=== PATIENT | male | born 1975 | race Caucasian/White ===

== ENCOUNTER 2020-08-25 00:28 | Emergency (ER) | payer MEDICARE ==
[~2020-08-25] VITALS: Ht 175.3 cm; Wt 70.9 kg
[2020-08-25 01:04] VITALS: TEMP 97.9
[2020-08-25 01:36] LABS: BASO # 0.1 (0.0-0.2); BASO % 0.8 % (0.0-2.0); EOS % 0.4 % (0-4.0); GRAN # 2.7 (1.4-6.5); GRAN % 36.9 % (42.2-75.2); HEMOGLOBIN 12.5 g/dl (13.5-18.0); LYMPH # 3.7 (1.2-3.4); LYMPH % 51.3 % (20.0-51.0); MEAN CELL VOLUME 94 fl (80.0-100.0); MEAN CORPUSCULAR HEMOGLOBIN 33 pg (27.0-31.0); MEAN CORPUSCULAR HGB CONC 35 g/dl (33.0-37.0); MEAN PLATELET VOLUME 10.2 fl (7.4-10.4); MONO # 0.8 (0.1-0.6); MONO % 10.5 % (1.7-9.3); PLATELET COUNT 200 K/mm3 (130-400); REDCELL DISTRIBUTION WIDTH-CV 12.8 % (11.5-14.5)
[2020-08-25 01:38] LABS: HEMATOCRIT 35.6 % (42.0-52.0)
[2020-08-25 01:53] LABS: ACETAMINOPHEN < 10 ug/mL (10-30); ALANINE AMINOTRANSFERASE 70 U/L (4-49); ALKALINE PHOSPHATASE 79 U/L (50-136); ANION GAP 9 mmol/L (7-16); AST,SGOT 67 U/L (15-37); BILIRUBIN,TOTAL 0.3 mg/dL (0.0-1.0); BLOOD UREA NITROGEN 15 mg/dL (9-20); CALCIUM 8.4 mg/dL (8.4-10.2); CARBON DIOXIDE 24 mmol/L (22-30); CHLORIDE 109 mmol/L (98-107); CREATININE, serum 1.08 (0.66-1.25); GLUCOSE 108 mg/dL (74-106); POTASSIUM 3.8 mmol/L (3.4-5.0); SALICYLATE < 1.0 mg/dL; SODIUM 142 mmol/L (137-145); TOTAL PROTEIN 6.8 gm/dL (6.4-8.2)
[2020-08-25 01:55] LABS: COLLECTION METHOD CLEAN CATCH
[2020-08-25 02:00] LABS: PH 5 (5-8); SQUAMOUS EPITHELIAL None Seen /hpf; URINE APPEARANCE Clear; URINE BACTERIA None Seen /hpf; URINE BILIRUBIN Negative (NEGATIVE); URINE BLOOD Negative (NEGATIVE); URINE COLOR Straw; URINE GLUCOSE Negative (NEGATIVE); URINE KETONE Negative (NEGATIVE); URINE LEUKOCYTE ESTERASE Negative (NEGATIVE); URINE NITRATE Negative (NEGATIVE); URINE PROTEIN(semi-quant) Negative (NEGATIVE); URINE RBC None Seen /hpf; URINE UROBILINOGEN Negative (NEGATIVE)
[2020-08-25 02:08] LABS: TRICYCLIC ANTIDEPRESS URINE NEGATIVE
[2020-08-25 07:51] LABS: ALCOHOL(ethanol),MEDICAL 321 mg/dL
[2020-08-25 14:19] VITALS: BP 144/96; PULSE 74
== END 2020-08-25 14:20 | disposition home or self-care (01) ==
LOC: COL.ER 00:28
PROVIDERS: Emergency Medicine
DX: S51.812A Laceration without foreign body of left forearm, initial encounter (principal); F10.129 Alcohol abuse with intoxication, unspecified; R45.850 Homicidal ideations; R45.851 Suicidal ideations; X78.9XXA Intentional self-harm by unspecified sharp object, initial encounter; Y90.7 Blood alcohol level of 200-239 mg/100 ml

== ENCOUNTER 2021-09-13 05:28 | Inpatient (IN) | payer MEDICARE ==
[~2021-09-13] VITALS: Ht 175.3 cm; Wt 72.7 kg
[~2021-09-13 05:28] MED LIST: BACTRIM DS 8001 TAB PO; CELEXA40 MG PO; CEPHALEXIN500 M1 PO; DESYREL 100MG100 MG PO; WELLBUTRIN XL300 M1 PO
[2021-09-13 05:58] LABS: BASO % 0.5 % (0.0-2.0); EOS % 0.3 % (0.0-4.0); GRAN # 2.4 K/mm3 (1.4-6.5); GRAN % 40.7 % (42.2-75.2); HEMATOCRIT 43.6 % (42.0-52.0); HEMOGLOBIN 15.5 g/dl (13.5-18.0); LYMPH # 2.4 K/mm3 (1.2-3.4); LYMPH % 40.7 % (20.0-51.0); MEAN CELL VOLUME 92 fl (80.0-100.0); MEAN CORPUSCULAR HEMOGLOBIN 33 pg (27-31); MEAN CORPUSCULAR HGB CONC 36 g/dl (33.0-37.0); MEAN PLATELET VOLUME 11.3 fl (7.4-10.4); MONO % 17.6 % (1.7-9.3); PLATELET COUNT 188 K/mm3 (130-400); RED BLOOD COUNT 4.74 M/mm3 (4.20-5.60); REDCELL DISTRIBUTION WIDTH-CV 12.2 % (11.5-14.5)
[2021-09-13 06:17] LABS: ALBUMIN 3.8 gm/dL (3.5-5.0); BILIRUBIN,TOTAL 0.6 mg/dL (0.2-1.2); CALCIUM 9.6 mg/dL (8.4-10.2); CREATININE, serum 0.93 mg/dL (0.72-1.25); POTASSIUM 3.8 mmol/L (3.5-4.5); TOTAL PROTEIN 7.6 gm/dL (6.2-8.1)
[2021-09-13 09:35] VITALS: BP 122/84; PULSE 75; TEMP 98.1
[2021-09-13 11:28] VITALS: BP 130/80; PULSE 92; TEMP 98
[2021-09-13] MEDS ORDERED: PRINIVIL20 MG PO (12:33)
[2021-09-13] MEDS ORDERED: LAMICTAL150 MG PO (12:34)
--- NOTE | 2021-09-13 15:00 | NUR ---
Admission assessment completed, alert/oriented, vital signs stable, repotrs moderate pain to left hand/ placing orders for medications and aware of need for pain meds, heart RRR, lungs CTA, denies other needs, independent in his room, will continue to monitor
[2021-09-13 16:34] VITALS: BP 123/82; PULSE 85; TEMP 98.6
[2021-09-13 19:54] VITALS: BP 114/81; PULSE 91; TEMP 97.5
--- NOTE | 2021-09-13 20:30 | NUR ---
Initial shift assessment done- denies need for pain meds at this time, left hand red /swollen- moving fingers good- pt states it feels better already. VSS. IV fluids of NS at 75cc/hr.
[2021-09-13 23:52] VITALS: BP 119/79; PULSE 65; TEMP 97.9
[2021-09-14 04:20] VITALS: BP 140/78; PULSE 56; TEMP 97.8
--- NOTE | 2021-09-14 04:57 | NUR ---
States pain to left hand 03/13- will give pain meds as ordered, VSS, no other requests.
[2021-09-14 06:49] LABS: HEMATOCRIT 38.6 % (42.0-52.0); MEAN CELL VOLUME 93 fl (80.0-100.0); MEAN CORPUSCULAR HEMOGLOBIN 32 pg (27-31); MEAN CORPUSCULAR HGB CONC 34 g/dl (33.0-37.0); MEAN PLATELET VOLUME 11.6 fl (7.4-10.4); PLATELET COUNT 170 K/mm3 (130-400); RED BLOOD COUNT 4.17 M/mm3 (4.20-5.60); REDCELL DISTRIBUTION WIDTH-CV 12.3 % (11.5-14.5)
[2021-09-14 06:53] LABS: HEMOGLOBIN 13.2 g/dl (13.5-18.0)
[2021-09-14 07:44] VITALS: BP 135/92; PULSE 63; TEMP 98
[2021-09-14 07:48] LABS: C-REACTIVE PROTEIN 3.51 mg/dL (0.00-0.50); CALCIUM 8.3 mg/dL (8.4-10.2); CREATININE, serum 0.8 mg/dL (0.72-1.25); MAGNESIUM 1.9 mg/dL (1.6-2.6); POTASSIUM 3.9 mmol/L (3.5-4.5)
[2021-09-14 08:03] LABS: BAND 2 % (0-10); LYMPHOCYTE 58 % (20.0-51.0); NEUTROPHILS 27 % (42.0-75.2)
[2021-09-14 08:04] LABS: PLATELET ESTIMATE NORMAL (NORMAL)
[2021-09-14 11:02] VITALS: BP 113/61; PULSE 77; TEMP 97.2
--- NOTE | 2021-09-14 14:22 | NUR ---
cab worker met with patient to discuss discharge plan. Patient reports that he lives at home alone here in [place]. Patient is independent with her activitied of daily living and that he does not utilize and DME to assist with mobility. Patient has no oxygen needs at home. PCP is JOHANA Sandoval and he utilizes [facility] for medications with no cost difficulty. Patient reports that he does not have a DPOA-HC established but that his parents Antoni and Jessica Gagnon ([phone]) are established as "something". Patient have never been and has no children. He i splanning on returning home post discharge. Discharge plan: Home
--- NOTE | 2021-09-14 15:52 | NUR ---
First visit from the jitterbug operator. No needs right now.
[2021-09-14 16:07] VITALS: BP 112/73; PULSE 63; TEMP 98
[2021-09-14 19:39] VITALS: BP 117/78; PULSE 68; TEMP 98
--- NOTE | 2021-09-14 20:51 | NUR ---
Patient given PRN Roxicodone and Motrin and requeste for pain to left hand. Continues on IV ABX per orders. Left hand/wrist continue to have some redness/warmth, minimal swelling. Patient reports area is looking and feeling better today. Voices no further questions, needs, or concerns at this time. In bed with call light within reach.
[2021-09-14 23:24] VITALS: BP 142/80; PULSE 68; TEMP 97.6
[2021-09-15 04:37] VITALS: BP 105/71; PULSE 55; TEMP 97.8
--- NOTE | 2021-09-15 05:32 | NUR ---
No further complaints of pain or discomfort voiced this shift. In bed with call light within reach.
[2021-09-15 07:27] LABS: CALCIUM 8.4 mg/dL (8.4-10.2); CREATININE, serum 0.71 mg/dL (0.72-1.25); POTASSIUM 3.8 mmol/L (3.5-4.5)
[2021-09-15 08:11] LABS: BASO % 1.1 % (0.0-2.0); EOS # 0.1 K/mm3 (0.0-0.7); EOS % 1.6 % (0.0-4.0); GRAN # 0.8 K/mm3 (1.4-6.5); GRAN % 21.3 % (42.2-75.2); HEMATOCRIT 38.4 % (42.0-52.0); HEMOGLOBIN 13.1 g/dl (13.5-18.0); LYMPH # 2.2 K/mm3 (1.2-3.4); LYMPH % 57.6 % (20.0-51.0); MEAN CELL VOLUME 94 fl (80.0-100.0); MEAN CORPUSCULAR HEMOGLOBIN 32 pg (27-31); MEAN CORPUSCULAR HGB CONC 34 g/dl (33.0-37.0); MEAN PLATELET VOLUME 11.9 fl (7.4-10.4); MONO # 0.7 K/mm3 (0.1-0.6); MONO % 17.9 % (1.7-9.3); PLATELET COUNT 179 K/mm3 (130-400); RED BLOOD COUNT 4.08 M/mm3 (4.20-5.60); REDCELL DISTRIBUTION WIDTH-CV 12.3 % (11.5-14.5)
[2021-09-15 08:34] VITALS: BP 131/7; BP 131/75; PULSE 55; TEMP 97.6
--- NOTE | 2021-09-15 08:59 | NUR ---
PT SITTING UP IN BED. MORNING MEDICATIONS GIVEN. SHIFT ASSESSMENT COMPLETED. PT REPORTS 5/10 PAIN TO L HAND, BUT STATES IT'S IMPROVING. PT STILL HAS FUNCTION/MOVEMENT OF HAND. DENIES ANY OTHER PAIN/PROBLEMS. CONTINUING TO MONITOR.
[2021-09-15] MEDS ORDERED: TYLENOL 500MG500 MG PO (09:48)
[2021-09-15] MEDS ORDERED: IBU600 MG PO (09:48)
[2021-09-15] MEDS ORDERED: ROXICODONE 55 MG/TAB PO (09:49)
[2021-09-15] MEDS ORDERED: CLEOCIN HCL300 MG PO (09:53)
== END 2021-09-15 12:06 | disposition home or self-care (01) | DRG 603 ==
LOC: COL.ER 05:28 → MEDICAL 06:56
PROVIDERS: Physician Assistant; Student in an Organized Health Care Education/Training Program; ADMIT Internal Medicine
DX: L03.114 Cellulitis of left upper limb (principal); E87.1 Hypo-osmolality and hyponatremia; I10 Essential (primary) hypertension; F31.9 Bipolar disorder, unspecified; F17.210 Nicotine dependence, cigarettes, uncomplicated
CPT/HCPCS: OP; 99231-AI; 99239; J1650; J7030

== ENCOUNTER 2021-10-12 02:46 | Emergency (ER) | payer MEDICARE ==
[~2021-10-12] VITALS: Ht 175.3 cm; Wt 68.2 kg
[~2021-10-12 02:46] MED LIST changes: +CLEOCIN HCL300 MG PO; +IBU600 MG PO; +LAMICTAL150 MG PO; +PRINIVIL20 MG PO; +ROXICODONE 55 MG/TAB PO; +TYLENOL 500MG500 MG PO
[2021-10-12 03:15] LABS: HEMATOCRIT 41.5 % (42.0-52.0); HEMOGLOBIN 14.3 g/dl (13.5-18.0); MEAN CELL VOLUME 94 fl (80.0-100.0); MEAN CORPUSCULAR HEMOGLOBIN 32 pg (27-31); MEAN CORPUSCULAR HGB CONC 35 g/dl (33.0-37.0); MEAN PLATELET VOLUME 10.2 fl (7.4-10.4); PLATELET COUNT 189 K/mm3 (130-400); RED BLOOD COUNT 4.42 M/mm3 (4.20-5.60); REDCELL DISTRIBUTION WIDTH-CV 13.9 % (11.5-14.5)
[2021-10-12 03:22] LABS: COLLECTION METHOD CLEAN CATCH
[2021-10-12 03:32] LABS: MUCOUS Present (NOT PRESENT); PH 5 (5-8); SQUAMOUS EPITHELIAL None Seen /hpf (0-10); URINE APPEARANCE Hazy (CLEAR/HAZY); URINE BACTERIA None Seen /hpf (NONE SEEN); URINE BILIRUBIN Negative (NEGATIVE); URINE BLOOD Negative (NEGATIVE); URINE COLOR Yellow (YELLOW); URINE GLUCOSE Negative (NEGATIVE); URINE KETONE Negative (NEGATIVE); URINE LEUKOCYTE ESTERASE Negative (NEGATIVE); URINE NITRATE Negative (NEGATIVE); URINE PROTEIN(semi-quant) 1+ (NEGATIVE); URINE RBC 0-2 /hpf (0-2)
[2021-10-12 03:34] LABS: ALANINE AMINOTRANSFERASE 55 U/L (0-55); ALKALINE PHOSPHATASE 125 U/L (40-150); ANION GAP 12 mmol/L (7-16); AST,SGOT 65 U/L (5-34); BILIRUBIN,TOTAL 0.3 mg/dL (0.2-1.2); BLOOD UREA NITROGEN 13 mg/dL (9-21); CALCIUM 8.6 mg/dL (8.4-10.2); CARBON DIOXIDE 23 mmol/L (22-29); CHLORIDE 110 mmol/L (98-107); CREATININE, serum 1.06 mg/dL (0.72-1.25); GLUCOSE 126 mg/dL (70-99); POTASSIUM 3.5 mmol/L (3.5-4.5); SODIUM 145 mmol/L (136-145); TOTAL PROTEIN 7.4 gm/dL (6.2-8.1)
[2021-10-12 03:37] LABS: ACETAMINOPHEN < 1.0 ug/mL (10-30); SALICYLATE < 5.0 mg/dL (15.0-30.0)
[2021-10-12 03:38] LABS: ALCOHOL(ethanol),MEDICAL 368 mg/dL (0-10)
[2021-10-12 03:39] LABS: TRICYCLIC ANTIDEPRESS URINE NEGATIVE
[2021-10-12 04:00] LABS: LYMPHOCYTE 70 % (20.0-51.0); NEUTROPHILS 25 % (42.0-75.2); PLATELET ESTIMATE NORMAL (NORMAL)
[2021-10-12 19:12] VITALS: BP 161/90; PULSE 97; TEMP 97.8
[2021-10-13] MEDS ORDERED: WELLBUTRIN XL300 M1 PO (18:33)
[2021-10-13] MEDS ORDERED: REVIA 50MG TABL50 MG PO (18:33)
[2021-10-13] MEDS ORDERED: DESYREL 100MG100 MG PO (20:26)
[2021-10-14] MEDS ORDERED: VRAYLAR3 MG PO (10:34)
[2021-10-14] MEDS ORDERED: CELEBREX 1100 MG/CAP PO (10:36)
[2021-10-15] VITALS (37 sets, daily range): O2SAT 77–100
== END 2021-10-12 19:12 | disposition home or self-care (01) ==
LOC: COL.ER 02:46
PROVIDERS: Emergency Medicine
DX: F10.129 Alcohol abuse with intoxication, unspecified (principal); R45.851 Suicidal ideations; R45.850 Homicidal ideations; R74.01 Elevation of levels of liver transaminase levels; Y90.8 Blood alcohol level of 240 mg/100 ml or more

== ENCOUNTER 2021-10-23 22:46 | Emergency (ER) | payer MEDICARE ==
[~2021-10-23] VITALS: Ht 175.3 cm; Wt 68.5 kg
[~2021-10-23 22:46] MED LIST changes: +CELEBREX 1100 MG/CAP PO; +REVIA 50MG TABL50 MG PO; +VRAYLAR3 MG PO
[2021-10-23 23:28] LABS: BASO # 0.1 K/mm3 (0.0-0.2); BASO % 1.1 % (0.0-2.0); EOS % 0.2 % (0.0-4.0); GRAN # 1.8 K/mm3 (1.4-6.5); HEMATOCRIT 39.2 % (42.0-52.0); HEMOGLOBIN 13.5 g/dl (13.5-18.0); LYMPH # 2.1 K/mm3 (1.2-3.4); LYMPH % 45.2 % (20.0-51.0); MEAN CELL VOLUME 95 fl (80.0-100.0); MEAN CORPUSCULAR HEMOGLOBIN 33 pg (27-31); MEAN CORPUSCULAR HGB CONC 34 g/dl (33.0-37.0); MEAN PLATELET VOLUME 10.1 fl (7.4-10.4); MONO # 0.7 K/mm3 (0.1-0.6); MONO % 14.3 % (1.7-9.3); PLATELET COUNT 238 K/mm3 (130-400); RED BLOOD COUNT 4.15 M/mm3 (4.20-5.60); REDCELL DISTRIBUTION WIDTH-CV 13.5 % (11.5-14.5)
[2021-10-23 23:31] LABS: COLLECTION METHOD CLEAN CATCH
[2021-10-23 23:44] LABS: PH 6 (5-8); SQUAMOUS EPITHELIAL None Seen /hpf (0-10); URINE APPEARANCE Clear (CLEAR/HAZY); URINE BACTERIA None Seen /hpf (NONE SEEN); URINE BILIRUBIN Negative (NEGATIVE); URINE BLOOD Negative (NEGATIVE); URINE COLOR Straw (YELLOW); URINE GLUCOSE Negative (NEGATIVE); URINE KETONE Negative (NEGATIVE); URINE LEUKOCYTE ESTERASE Negative (NEGATIVE); URINE NITRATE Negative (NEGATIVE); URINE PROTEIN(semi-quant) Negative (NEGATIVE); URINE RBC 0-2 /hpf (0-2); URINE UROBILINOGEN Negative (NEGATIVE)
[2021-10-23 23:46] LABS: ACETAMINOPHEN < 1.0 ug/mL (10-30); ALANINE AMINOTRANSFERASE 57 U/L (0-55); ALBUMIN 3.9 gm/dL (3.5-5.0); ALCOHOL(ethanol),MEDICAL 181 mg/dL (0-10); ALKALINE PHOSPHATASE 88 U/L (40-150); ANION GAP 11 mmol/L (7-16); AST,SGOT 34 U/L (5-34); BILIRUBIN,TOTAL 0.3 mg/dL (0.2-1.2); BLOOD UREA NITROGEN 9 mg/dL (9-21); CALCIUM 8.6 mg/dL (8.4-10.2); CARBON DIOXIDE 27 mmol/L (22-29); CHLORIDE 104 mmol/L (98-107); GLUCOSE 128 mg/dL (70-99); POTASSIUM 3.7 mmol/L (3.5-4.5); SALICYLATE < 5.0 mg/dL (15.0-30.0); SODIUM 142 mmol/L (136-145); TOTAL PROTEIN 7.4 gm/dL (6.2-8.1)
[2021-10-23 23:47] LABS: TRICYCLIC ANTIDEPRESS URINE NEGATIVE
[2021-10-24 05:28] VITALS: BP 136/77; PULSE 66; TEMP 98.1
== END 2021-10-24 05:49 | disposition home or self-care (01) ==
LOC: COL.ER 22:46
PROVIDERS: Emergency Medicine
DX: F20.9 Schizophrenia, unspecified (principal); F32.9 Major depressive disorder, single episode, unspecified; R45.851 Suicidal ideations; R45.850 Homicidal ideations

== ENCOUNTER 2022-02-19 21:07 | Emergency (ER) | payer MEDICARE ==
[2022-02-19 23:10] LABS: ALANINE AMINOTRANSFERASE 75 U/L (0-55); ALBUMIN 3.7 gm/dL (3.5-5.0); ALCOHOL(ethanol),MEDICAL 207 mg/dL (0-10); ALKALINE PHOSPHATASE 115 U/L (40-150); ANION GAP 15 mmol/L (7-16); AST,SGOT 84 U/L (5-34); BILIRUBIN,TOTAL 0.3 mg/dL (0.2-1.2); BLOOD UREA NITROGEN 11 mg/dL (9-21); CALCIUM 8.4 mg/dL (8.4-10.2); CARBON DIOXIDE 21 mmol/L (22-29); CHLORIDE 107 mmol/L (98-107); CREATININE, serum 0.96 mg/dL (0.72-1.25); GLUCOSE 145 mg/dL (70-99); SODIUM 143 mmol/L (136-145); TOTAL PROTEIN 7.4 gm/dL (6.2-8.1)
[2022-02-19 23:13] LABS: ACETAMINOPHEN < 1.0 ug/mL (10-30); SALICYLATE < 5.0 mg/dL (15.0-30.0)
[2022-02-19 23:44] LABS: BASO % 0.7 % (0.0-2.0); EOS % 0.2 % (0.0-4.0); GRAN # 2.9 K/mm3 (1.4-6.5); GRAN % 50.6 % (42.2-75.2); HEMATOCRIT 39.8 % (42.0-52.0); HEMOGLOBIN 13.6 g/dl (13.5-18.0); LYMPH # 2.3 K/mm3 (1.2-3.4); MEAN CELL VOLUME 93 fl (80.0-100.0); MEAN CORPUSCULAR HEMOGLOBIN 32 pg (27-31); MEAN CORPUSCULAR HGB CONC 34 g/dl (33.0-37.0); MONO # 0.5 K/mm3 (0.1-0.6); MONO % 8.3 % (1.7-9.3); PLATELET COUNT 175 K/mm3 (130-400); REDCELL DISTRIBUTION WIDTH-CV 13.5 % (11.5-14.5)
[2022-02-20 01:59] LABS: TRICYCLIC ANTIDEPRESS URINE NEGATIVE
[2022-02-20 16:12] VITALS: BP 121/75; PULSE 60; TEMP 98.1
== END 2022-02-20 16:20 ==
LOC: COL.ER 21:07
PROVIDERS: Family Medicine; Nurse Practitioner
DX: R45.851 Suicidal ideations (principal); F10.129 Alcohol abuse with intoxication, unspecified; F17.290 Nicotine dependence, other tobacco product, uncomplicated; Z20.822 Contact with and (suspected) exposure to COVID-19; Z28.310 Unvaccinated for COVID-19